=== PATIENT | male | born 1955 | race African-American/Black ===

== ENCOUNTER 2018-11-22 14:26 | Inpatient (IN) | payer MEDICAID, OTHER ==
[~2018-11-22] VITALS: Ht 165.1 cm; Wt 62.6 kg
[~2018-11-22 14:26] MED LIST: ASPI-1393 GT; CLON0.1T GT; CLOP75TA33 GT; FAMO20TA8 GT; GLUC1VIA6 IM; QUET25TA34 GT
[2018-11-22 15:30] LABS: CHLORIDE 103 mEq/L (98-107)
[2018-11-22 15:31] LABS: HEMATOCRIT. 26.1 % (42.0-52.0); HEMOGLOBIN. 8.6 g/dL (14.0-18.0); MEAN CORPUSCULAR HEMOGLOBIN 28.5 pg (28.0-32.0); MEAN CORPUSCULAR VOLUME 86.3 fL (80.0-94.0); MEAN PLATELET VOLUME 8.3 fl (7.4-10.4); PLATELET 581 x1000/uL (130-400); RED BLOOD CELL COUNT 3.03 mill/uL (4.7-6.1); RED CELL DISTRIBUTION WIDTH 14.4 % (11.6-14.6)
[2018-11-22 15:32] LABS: INR 1.1; PROTHROMBIN TIME 11.5 sec (9.6-11.0)
[2018-11-22] MEDS ORDERED: SODIUM CHLORIDE 0.9% 1,000 ML IV ONE (16:22)
[2018-11-22 16:34] LABS: PLATELET ESTIMATE INCREASED
[2018-11-22] MEDS ORDERED: CEFTRIAXONE 1 G PREMIX 50 ML IV ONE (17:30)
[2018-11-22] MEDS ORDERED: IPRATROPIUM/ALBUTEROL 0.5-3(2.5)MG/3ML NEB INH PRN (18:15)
[2018-11-22] MEDS ORDERED: GUAIFENESIN 200MG/10ML SUGAR FREE UDC PO PRN (18:15)
[2018-11-22] MEDS ORDERED: ONDANSETRON HCL 4MG/2ML INJ IV PRN (18:15)
[2018-11-22] MEDS ORDERED: DIPHENHYDRAMINE 50MG/ML VIAL IV PRN (18:15)
[2018-11-22] MEDS ORDERED: MAGNESIUM/ALUMINUM HYDROXIDE/SIMETHICONE 30ML UDC PO PRN (18:15)
[2018-11-22 18:46] LABS: PHOSPHORUS 3.9 mg/dL (2.5-4.9)
[2018-11-22] MEDS: SODIUM CHLORIDE 0.9% 1,000 ML IV SCH (21:55)
[2018-11-22 22:00] VITALS: BP 126/66
[2018-11-23] VITALS: BP 134/60
[2018-11-23] MEDS ORDERED: RISP1DIS PO (00:40)
[2018-11-23] MEDS ORDERED: LISI-604 PO (00:40)
[2018-11-23] MEDS ORDERED: CLON-457 PO (00:40)
[2018-11-23] MEDS ORDERED: METO-539 PO (00:40)
[2018-11-23] MEDS ORDERED: MULT-379 PO (00:40)
[2018-11-23] MEDS ORDERED: LEVE10006 PO (00:40)
[2018-11-23] MEDS ORDERED: RISP-8 PO (00:41)
[2018-11-23 00:54] LABS: CREATINE KINASE 70 IU/L (39-308)
[2018-11-23 00:56] LABS: CREATINE KINASE MB FRACTION < 1.0 ng/mL (0.5-3.6)
[2018-11-23 04:00] VITALS: BP 116/61
[2018-11-23 06:15] LABS: CHLORIDE 109 mEq/L (98-107)
[2018-11-23 06:24] LABS: CREATINE KINASE 70 IU/L (39-308); LDL CHOLESTEROL 94 mg/dL (5-100)
[2018-11-23 06:25] LABS: HDL CHOLESTEROL 30 mg/dL (40-59)
[2018-11-23 06:27] LABS: CREATINE KINASE MB FRACTION < 1.0 ng/mL (0.5-3.6)
[2018-11-23 06:34] LABS: BASOPHILS % 0.6 % (0.0-2.0); EOSINOPHILS % 1.9 % (0.0-5.0); HEMATOCRIT. 22.1 % (42.0-52.0); HEMOGLOBIN. 7.3 g/dL (14.0-18.0); LYMPHOCYTES % 9.7 % (20.0-50.0); MEAN CORPUSCULAR HEMOGLOBIN 28.7 pg (28.0-32.0); MEAN CORPUSCULAR VOLUME 86.3 fL (80.0-94.0); MEAN PLATELET VOLUME 8.2 fl (7.4-10.4); MONOCYTES % 7.5 % (2.0-8.0); NEUTROPHILS % 80.3 % (40.0-76.0); PLATELET 523 x1000/uL (130-400); RED BLOOD CELL COUNT 2.56 mill/uL (4.7-6.1); RED CELL DISTRIBUTION WIDTH 14.2 % (11.6-14.6)
[2018-11-23 08:00] VITALS: BP 115/63
[2018-11-23] MEDS: ENOXAPARIN 40MG/0.4ML SYR SUBCUT SCH (08:58)
[2018-11-23] MEDS: SODIUM CHLORIDE 0.9% 1,000 ML IV SCH ×2 (11:58→22:36)
[2018-11-23 12:00] VITALS: BP 134/70
[2018-11-23 16:00] VITALS: BP 128/79
[2018-11-23] MEDS ORDERED: CEFTRIAXONE 1 G PREMIX 50 ML IV SCH (18:00)
[2018-11-23 20:00] VITALS: BP 129/75
[2018-11-23] MEDS: CEFTRIAXONE 1 G PREMIX 50 ML IV SCH (21:30)
[2018-11-24] VITALS: BP 150/68
[2018-11-24 04:00] VITALS: BP 136/70
[2018-11-24 08:00] VITALS: BP 131/70
[2018-11-24] MEDS: ENOXAPARIN 40MG/0.4ML SYR SUBCUT SCH (10:48)
[2018-11-24 12:00] VITALS: BP 120/79
[2018-11-24 16:00] VITALS: BP 156/72
[2018-11-24 16:27] LABS: CHLORIDE 110 mEq/L (98-107); EOSINOPHILS % 1.7 % (0.0-5.0); HEMATOCRIT. 23.9 % (42.0-52.0); HEMOGLOBIN. 7.8 g/dL (14.0-18.0); LYMPHOCYTES % 10.1 % (20.0-50.0); MEAN CORPUSCULAR HEMOGLOBIN 28.1 pg (28.0-32.0); MEAN CORPUSCULAR VOLUME 86.3 fL (80.0-94.0); MEAN PLATELET VOLUME 8.3 fl (7.4-10.4); MONOCYTES % 7.7 % (2.0-8.0); NEUTROPHILS % 79.5 % (40.0-76.0); PLATELET 539 x1000/uL (130-400); RED BLOOD CELL COUNT 2.77 mill/uL (4.7-6.1); RED CELL DISTRIBUTION WIDTH 14.2 % (11.6-14.6)
[2018-11-24 20:00] VITALS: BP 175/71
[2018-11-24] MEDS: CLONIDINE 0.1MG TABLET PO PRN (21:12)
[2018-11-24] MEDS: CEFTRIAXONE 1 G PREMIX 50 ML IV SCH (21:12)
[2018-11-24] MEDS: DOCUSATE SODIUM 100MG CAPSULE PO PRN (21:12)
[2018-11-24] MEDS: SODIUM CHLORIDE 0.9% 1,000 ML IV SCH (21:12)
[2018-11-25] VITALS: BP 150/80
[2018-11-25 04:00] VITALS: BP 139/76
[2018-11-25 08:00] VITALS: BP 121/60
[2018-11-25] MEDS ORDERED: GENTAMICIN/NS IRRIGATION 500 ML IR ONE (08:08)
[2018-11-25] MEDS ORDERED: LIDOCAINE HCL 1% 20ML VIAL (Pyxis) INJ ONE (08:08)
[2018-11-25] MEDS ORDERED: GENTAMICIN SULF 40MG/ML 2ML VIAL ONE (08:08)
[2018-11-25] MEDS: ENOXAPARIN 40MG/0.4ML SYR SUBCUT SCH (08:43)
[2018-11-25 12:03] VITALS: BP 109/60
[2018-11-25] MEDS: SODIUM CHLORIDE 0.9% 1,000 ML IV SCH (13:03)
[2018-11-25 15:46] VITALS: BP 143/64
[2018-11-25 16:00] VITALS: BP 143/64
[2018-11-25] MEDS: PANTOPRAZOLE SODIUM 40 MG/VIAL IV SCH (18:03)
[2018-11-25] MEDS: ATORVASTATIN CALCIUM 20MG TABLET PO SCH (20:09)
[2018-11-25] MEDS: CEFTRIAXONE 1 G PREMIX 50 ML IV SCH (20:09)
[2018-11-25 21:23] LABS: HEMATOCRIT 19.6 % (42.0-52.0); HEMOGLOBIN 6.6 g/dL (14.0-18.0)
[2018-11-26] VITALS (15 sets, daily range): BP systolic 130–167; BP diastolic 37–80
[2018-11-26] MEDS: DEXT 5%/0.45% NACL 1000ML 1,000 ML IV SCH ×2 (01:01→21:32)
[2018-11-26] MEDS: ENOXAPARIN 40MG/0.4ML SYR SUBCUT SCH (08:17)
[2018-11-26] MEDS: CLONIDINE 0.1MG TABLET PO PRN (08:17)
[2018-11-26] MEDS: PANTOPRAZOLE SODIUM 40 MG/VIAL IV SCH (08:17)
[2018-11-26 10:44] LABS: INR 1.2; PROTHROMBIN TIME 11.9 sec (9.6-11.0)
[2018-11-26 10:50] LABS: BASOPHILS % 0.8 % (0.0-2.0); EOSINOPHILS % 1.9 % (0.0-5.0); HEMATOCRIT. 26.8 % (42.0-52.0); HEMOGLOBIN. 8.9 g/dL (14.0-18.0); LYMPHOCYTES % 8.5 % (20.0-50.0); MEAN CORPUSCULAR HEMOGLOBIN 28.2 pg (28.0-32.0); MEAN CORPUSCULAR VOLUME 84.3 fL (80.0-94.0); MEAN PLATELET VOLUME 7.6 fl (7.4-10.4); MONOCYTES % 6.6 % (2.0-8.0); NEUTROPHILS % 82.2 % (40.0-76.0); PLATELET 453 x1000/uL (130-400); RED BLOOD CELL COUNT 3.17 mill/uL (4.7-6.1); RED CELL DISTRIBUTION WIDTH 14.6 % (11.6-14.6)
[2018-11-26 11:08] LABS: CHLORIDE 110 mEq/L (98-107)
[2018-11-26 11:27] LABS: FOLIC ACID (FOLATE) SERUM 9.4 ng/mL (>5.38)
[2018-11-26] MEDS ORDERED: MIDAZOLAM HCL 5 MG/5 ML VIAL ONE (15:29)
[2018-11-26] MEDS ORDERED: FENTANYL CITRATE/PF 50MCG/ML 2ML VIAL IV PRN (15:29)
[2018-11-26] MEDS ORDERED: FENTANYL CITRATE/PF 50MCG/ML 2ML VIAL ONE (15:29)
[2018-11-26] MEDS ORDERED: MIDAZOLAM HCL 5 MG/5 ML VIAL IV PRN (15:30)
[2018-11-26] MEDS: ATORVASTATIN CALCIUM 20MG TABLET PO SCH (21:33)
[2018-11-26] MEDS: CEFTRIAXONE 1 G PREMIX 50 ML IV SCH (21:33)
[2018-11-27] VITALS (7 sets, daily range): BP systolic 133–164; BP diastolic 72–86
[2018-11-27 06:43] LABS: BASOPHILS % 0.6 % (0.0-2.0); EOSINOPHILS % 1.4 % (0.0-5.0); HEMATOCRIT. 26.8 % (42.0-52.0); HEMOGLOBIN. 9.1 g/dL (14.0-18.0); LYMPHOCYTES % 7.7 % (20.0-50.0); MEAN CORPUSCULAR HEMOGLOBIN 28.7 pg (28.0-32.0); MEAN CORPUSCULAR VOLUME 84.4 fL (80.0-94.0); MEAN PLATELET VOLUME 8.3 fl (7.4-10.4); MONOCYTES % 7.5 % (2.0-8.0); NEUTROPHILS % 82.8 % (40.0-76.0); PLATELET 458 x1000/uL (130-400); RED BLOOD CELL COUNT 3.17 mill/uL (4.7-6.1); RED CELL DISTRIBUTION WIDTH 14.5 % (11.6-14.6)
[2018-11-27 07:50] LABS: CHLORIDE 108 mEq/L (98-107)
[2018-11-27] MEDS: ENOXAPARIN 40MG/0.4ML SYR SUBCUT SCH (09:30)
[2018-11-27] MEDS: PANTOPRAZOLE SODIUM 40 MG/VIAL IV SCH ×2 (09:30→16:46)
[2018-11-27] MEDS: DOCUSATE SODIUM 100MG CAPSULE PO PRN (09:31)
[2018-11-27] MEDS: DEXT 5%/0.45% NACL 1000ML 1,000 ML IV SCH ×2 (13:18→16:41)
[2018-11-27] MEDS: CLONIDINE 0.1MG TABLET PO PRN (13:34)
[2018-11-27] MEDS: CEFTRIAXONE 1 G PREMIX 50 ML IV SCH (20:38)
[2018-11-27] MEDS: ATORVASTATIN CALCIUM 20MG TABLET PO SCH (20:38)
[2018-11-27] MEDS: ACETAMINOPHEN 325MG TABLET PO PRN (20:39)
[2018-11-28 04:00] VITALS: BP 129/79
[2018-11-28] MEDS: DEXT 5%/0.45% NACL 1000ML 1,000 ML IV SCH (06:43)
[2018-11-28 08:45] VITALS: BP 135/70
[2018-11-28] MEDS: PANTOPRAZOLE SODIUM 40 MG/VIAL IV SCH ×2 (09:20→18:16)
[2018-11-28] MEDS: ENOXAPARIN 40MG/0.4ML SYR SUBCUT SCH (09:20)
[2018-11-28 12:30] VITALS: BP 145/76
[2018-11-28 17:11] LABS: HEMOGLOBIN 9.5 g/dL (14.0-18.0)
[2018-11-28 17:20] VITALS: BP 134/75
[2018-11-28 20:00] VITALS: BP 137/83
[2018-11-28] MEDS: ATORVASTATIN CALCIUM 20MG TABLET PO SCH (20:55)
[2018-11-28] MEDS: CEFTRIAXONE 1 G PREMIX 50 ML IV SCH (20:55)
[2018-11-29 01:07] LABS: HEMATOCRIT 27.2 % (42.0-52.0); HEMOGLOBIN 9.2 g/dL (14.0-18.0)
[2018-11-29] MEDS: DEXT 5%/0.45% NACL 1000ML 1,000 ML IV SCH ×3 (03:59→21:50)
[2018-11-29 04:00] VITALS: BP 154/81
[2018-11-29 08:00] VITALS: BP 142/78
[2018-11-29 08:06] LABS: BASOPHILS % 0.8 % (0.0-2.0); EOSINOPHILS % 2.4 % (0.0-5.0); HEMATOCRIT. 28.4 % (42.0-52.0); HEMOGLOBIN. 9.7 g/dL (14.0-18.0); LYMPHOCYTES % 10.3 % (20.0-50.0); MEAN CORPUSCULAR HEMOGLOBIN 28.9 pg (28.0-32.0); MONOCYTES % 8.6 % (2.0-8.0); NEUTROPHILS % 77.9 % (40.0-76.0); PLATELET 480 x1000/uL (130-400); RED BLOOD CELL COUNT 3.34 mill/uL (4.7-6.1); RED CELL DISTRIBUTION WIDTH 14.7 % (11.6-14.6)
[2018-11-29] MEDS: PANTOPRAZOLE SODIUM 40 MG/VIAL IV SCH ×2 (09:00→17:00)
[2018-11-29] MEDS: ENOXAPARIN 40MG/0.4ML SYR SUBCUT SCH (09:00)
[2018-11-29 09:31] LABS: CHLORIDE 107 mEq/L (98-107)
[2018-11-29 12:00] VITALS: BP 158/79
[2018-11-29 16:00] VITALS: BP 162/80
[2018-11-29] MEDS: CEFTRIAXONE 1 G PREMIX 50 ML IV SCH ×2 (20:31→20:52)
[2018-11-29] MEDS: ATORVASTATIN CALCIUM 20MG TABLET PO SCH (20:31)
[2018-11-29] MEDS: ACETAMINOPHEN 325MG TABLET PO PRN (20:46)
[2018-11-30 00:06] VITALS: BP 148/79
[2018-11-30 08:00] VITALS: BP 163/83
[2018-11-30] MEDS: PANTOPRAZOLE SODIUM 40 MG/VIAL IV SCH (09:28)
[2018-11-30] MEDS: ENOXAPARIN 40MG/0.4ML SYR SUBCUT SCH (09:28)
[2018-11-30] MEDS: DEXT 5%/0.45% NACL 1000ML 1,000 ML IV SCH (09:36)
[2018-11-30 12:00] VITALS: BP 139/78
[2018-11-30 16:38] VITALS: BP 100/47
[2018-11-30 17:51] VITALS: BP 100/47
== END 2018-11-30 20:30 | DRG 241 ==
LOC: ER 14:26 → 7WST 17:43 → EDBEDREQ 17:45 → EDBEDREQTM 17:45 → ENRESERV 20:00
PROVIDERS: ADMIT Internal Medicine; ATTEND Internal Medicine
PROC: 0DB78ZX Excision of Stomach, Pylorus, Via Natural or Artificial Opening Endoscopic, Diagnostic (ICD-10-PCS; principal; 2018-11-26)
PROC: 30233N1 Transfusion of Nonautologous Red Blood Cells into Peripheral Vein, Percutaneous Approach (ICD-10-PCS; 2018-11-26)
DX: K29.71 Gastritis, unspecified, with bleeding (principal); N17.9 Acute kidney failure, unspecified; R65.10 Systemic inflammatory response syndrome (SIRS) of non-infectious origin without acute organ dysfunction; I69.351 Hemiplegia and hemiparesis following cerebral infarction affecting right dominant side; F17.200 Nicotine dependence, unspecified, uncomplicated; D50.9 Iron deficiency anemia, unspecified; D47.3 Essential (hemorrhagic) thrombocythemia; D63.1 Anemia in chronic kidney disease; I10 Essential (primary) hypertension; F32.9 Major depressive disorder, single episode, unspecified; R79.82 Elevated C-reactive protein (CRP); I12.9 Hypertensive chronic kidney disease with stage 1 through stage 4 chronic kidney disease, or unspecified chronic kidney disease; K44.9 Diaphragmatic hernia without obstruction or gangrene; K21.9 Gastro-esophageal reflux disease without esophagitis; N18.9 Chronic kidney disease, unspecified; Z79.82 Long term (current) use of aspirin; I69.320 Aphasia following cerebral infarction; Z79.02 Long term (current) use of antithrombotics/antiplatelets
CPT/HCPCS: 36415; 71045; 78278; 80048; 80061; 82270; 82550; 82553; 82607; 82728; 82746; 82962; 83540; 83550; 83605; 83735; 83880; 84100; 84145; 84443; 84484; 85014; 85018; 85651; 86140; 86850; 86900; 86920; 88305; 88312; 88313; 93005; 93970; 94640; 96374; 99285; A9560; C9113; J0696; J1200; J1580; J1650; J2250; J3010; J3490; J7030; J7620; P9016